=== PATIENT | male | born 1995 | race Caucasian/White ===

== ENCOUNTER 2019-08-23 20:05 | Emergency (ER) | payer OTHER, MEDICAID ==
[~2019-08-23] VITALS: Ht 172.7 cm; Wt 95.3 kg
[~2019-08-23 20:05] MED LIST: COL100 PO; NOR10T PO; NORCO1 TA2 PO; SEN PO
[2019-08-23 20:17] VITALS: Ht 172.7 cm; Wt 95.3 kg
[2019-08-23 22:12] VITALS: BP 116/54
== END 2019-08-23 22:05 | disposition home or self-care (01) ==
LOC: ED 20:05
DX: S93.602A Unspecified sprain of left foot, initial encounter (principal); E11.9 Type 2 diabetes mellitus without complications; Z90.49 Acquired absence of other specified parts of digestive tract; X58.XXXA Exposure to other specified factors, initial encounter; Y93.89 Activity, other specified; Y92.89 Other specified places as the place of occurrence of the external cause; Y99.8 Other external cause status
CPT/HCPCS: Q0092